=== PATIENT | female | born 1930 | race Caucasian/White ===

== ENCOUNTER 2018-11-16 19:39 | Emergency (ER) | payer OTHER, BC ==
[~2018-11-16] VITALS: Ht 147.3 cm; Wt 48.1 kg
[2018-11-16 19:45] VITALS: Ht 147.3 cm; Wt 48.1 kg
[2018-11-16 22:40] VITALS: BP 160/85
== END 2018-11-16 22:40 | disposition home or self-care (01) ==
LOC: ED 19:39
DX: S51.811A Laceration without foreign body of right forearm, initial encounter (principal); I10 Essential (primary) hypertension; E78.00 Pure hypercholesterolemia, unspecified; K21.9 Gastro-esophageal reflux disease without esophagitis; W22.8XXA Striking against or struck by other objects, initial encounter; Y93.89 Activity, other specified; Y92.89 Other specified places as the place of occurrence of the external cause; Y99.8 Other external cause status
CPT/HCPCS: Q0092

== ENCOUNTER 2019-04-12 11:08 | Emergency (ER) | payer OTHER, BC ==
[~2019-04-12] VITALS: Ht 147.3 cm; Wt 44.9 kg
[2019-04-12 11:18] VITALS: Ht 147.3 cm; Wt 44.9 kg
[2019-04-12 13:56] VITALS: BP 128/45
== END 2019-04-12 13:10 | disposition home or self-care (01) ==
LOC: ED 11:08
DX: S01.81XA Laceration without foreign body of other part of head, initial encounter (principal); S80.01XA Contusion of right knee, initial encounter; S61.401A Unspecified open wound of right hand, initial encounter; S09.8XXA Other specified injuries of head, initial encounter; E78.00 Pure hypercholesterolemia, unspecified; I10 Essential (primary) hypertension; K21.9 Gastro-esophageal reflux disease without esophagitis; W18.30XA Fall on same level, unspecified, initial encounter; Y93.89 Activity, other specified; Y92.89 Other specified places as the place of occurrence of the external cause; Y99.8 Other external cause status